=== PATIENT | female | born 1965 | race Caucasian/White ===

== ENCOUNTER 2016-08-12 12:34 | Emergency (ER) | payer MEDICAID ==
[2016-08-12] MEDS ORDERED: NS 1,000 ML IV ONE ×2 (12:43→14:25)
[2016-08-12] MEDS ORDERED: LORazepam 2 MG/ML INJ IVP ONE ×2 (12:43→14:25)
[2016-08-12] MEDS ORDERED: FOLIC ACID 1 MG TAB PO ONE (12:43)
[2016-08-12] MEDS ORDERED: THIAMINE HCL 100 MG TAB PO ONE (12:43)
[2016-08-12] MEDS ORDERED: MULTIVITAMINS 1 EACH TAB PO ONE (12:43)
[2016-08-12 12:46] VITALS: RESP 18; TEMP 97.5
--- NOTE | 2016-08-12 12:47 | EDPHY ---
H & P - Personal History Tetanus Vaccine Date: < 10 YEARS - Medical/Surgical History Hx Asthma: Yes Hx Chronic Respiratory Disease: No Hx Diabetes: No Hx Cardiac Disease: No Hx Renal Disease: No Hx Cirrhosis: No Hx Alcoholism: Yes Hx HIV/AIDS: No Hx Splenectomy or Spleen Trauma: No Other PMH: pancreatitis, PTSD, anemia, HTN, "LEG CRAMPS" ETOH, GERD - Social History Smoking Status: Current every day smoker Time Seen by Provider: 08/12/16 12:36 HPI/ROS: CHIEF COMPLAINT: "My belly hurts" HISTORY OF PRESENT ILLNESS: 50-year-old female history of homelessness, alcoholism, alcoholic pancreatitis, arrives from the [facility] complaining of 2 days of epigastric abdominal pain. She has been binge drinking because of recent of her mother. Denies radiation pain. No nausea or vomiting. No bowel movement abnormality. No melena or hematochezia. No pale or riri-colored stool. No headache. No seizure. No hallucination. PRIMARY CARE PROVIDER: none REVIEW OF SYSTEMS: A ten point review of systems was performed and is negative with the exception of the items mentioned in the HPI PAST MEDICAL & SURGICAL HISTORY: Alcoholic pancreatitis. Hepatitis C. SOCIAL HISTORY: Homeless. last drink alcohol 2 hours ago. Has been binge drinking for the past 2 days due to family PHYSICAL EXAM (Prior to examination, patient consented to physical exam, hands were washed and my usual and customary physical exam procedures followed) 1) GENERAL: Well-developed, well-nourished, alert and oriented. Answering questions appropriately . 2) HEAD: Normocephalic, atraumatic 3) HEENT: Pupils equal, round, reactive to light bilaterally. Sclera anicteric. 4) NECK: Full range of motion, no meningeal signs. 5) LUNGS: Clear auscultation bilaterally, no wheezes, no rhonchi, no retractions. 6) HEART: Regular rate and rhythm, no murmur, no heave, no gallop. 7) ABDOMEN: guarding epigastrium, tender to palpation epigastrium, negative McBurney's, negative Walker's, negative Rovsing's, negative peritoneal sign, 8) MUSCULOSKELETAL: Moving all extremities, no focal areas of tenderness, no obvious trauma. No peripheral edema or discoloration. 9) BACK: No CVA tenderness, no midline vertebral tenderness, no fluctuance, no step-off, no obvious trauma, no visual or palpable abnormality. 10) SKIN: No rash, no petechiae. 11) Psychiatric: Patient is oriented X 3, there is no agitation. DIFFERENTIAL DIAGNOSIS: In no particular order, including but not limited to biliary colic, cholecystitis, peptic ulcer disease, pancreatitis, and gastroenteritis. This is a partial list of diagnoses considered. These considerations are based on history, physical exam, past history and reassessment. (Sintia Swanson) Constitutional: Initial Vital Signs Temperature (C) 36.4 C 08/12/16 12:41 Heart Rate 116 H 08/12/16 12:41 Respiratory Rate 18 08/12/16 12:41 Blood Pressure 137/94 H 08/12/16 12:41 O2 Sat (%) 91 L 08/12/16 12:41 O2 Delivery Mode Room Air O2 (L/minute) 2 Allergies/Adverse Reactions: No Known Allergies Allergy (Verified 02/12/16 07:41) Home Medications: Medication Instructions Recorded NK [No Known Home Meds] 02/12/16 Medical Decision Making ED Course/Re-evaluation: 2:05 p.m.: Patient has removed her IV catheter. 2:18 p.m.: Patient awake, requesting food. Reviewed her laboratory studies including her lipase which is mildly elevated, but this is somewhat baseline for her. She was given IV fluids, oral thiamine, folate, multivitamin, GI cocktail. She is answering questions appropriately with no evidence of delirium tremens. She would [facility] to be [facility]. Doubt acute surgical abdominal pathology. Doubt acute cholecystitis. 3:20 p.m.: Re-evaluation. She is watching TV, eating a sandwich, answering questions appropriately. She is conversive, awake alert oriented person place time events, stable steady gait, clear speech pattern. She would like to return to the [facility]. She will be discharged with a Librium prepack. Doubt DTs. Discussed case Dr. Aidee Sanderson in the ER. (Sintia Swanson) Other Provider: The patient wasevaluatedand managed by themidlevel provider. Idiscussed the patient's presentation and course with thephysicianassistantor nurse practitionerand agree with theevaluation. My co-signature indicates that I have reviewed this chart and I agree with the findings and plan of care as documented. I am the secondary supervisingphysician. (Aidee Sanderson) - Data Points Laboratory Results: Laboratory Results 08/12/16 13:10 08/12/16 13:10 08/12/16 08/12/16 08/12/16 13:10 13:10 13:10 WBC 5.30 10^3/uL 10^3/uL (3.80-9.50) RBC 4.70 10^6/uL 10^6/uL (4.18-5.33) Hgb 12.5 g/dL L g/dL (12.6-16.3) Hct 39.3 % % (38.0-47.0) MCV 83.6 fL fL (81.5-99.8) MCH 26.6 pg L pg (27.9-34.1) MCHC 31.8 g/dL L g/dL (32.4-36.7) RDW 19.7 % H % (11.5-15.2) Plt Count 187 10^3/uL 10^3/uL (150-400) MPV 9.7 fL fL (8.7-11.7) Neut % (Auto) 42.0 % % (39.3-74.2) Lymph % (Auto) 50.2 % H % (15.0-45.0) [place] % (Auto) 6.2 % % (4.5-13.0) Eos % (Auto) 0.8 % % (0.6-7.6) Baso % (Auto) 0.4 % % (0.3-1.7) Nucleat RBC Rel Count 0.0 % % (0.0-0.2) Absolute Neuts (auto) 2.23 10^3/uL 10^3/uL (1.70-6.50) Absolute Lymphs (auto) 2.66 10^3/uL 10^3/uL (1.00-3.00) Absolute Monos (auto) 0.33 10^3/uL 10^3/uL (0.30-0.80) Absolute Eos (auto) 0.04 10^3/uL 10^3/uL (0.03-0.40) Absolute Basos (auto) 0.02 10^3/uL 10^3/uL (0.02-0.10) Absolute Nucleated RBC 0.00 10^3/uL 10^3/uL (0-0.01) Immature Gran % 0.4 % % (0.0-1.1) Immature Gran # 0.02 10^3/uL 10^3/uL (0.00-0.10) Sodium 155 mEq/L H mEq/L (134-144) Potassium 4.5 mEq/L mEq/L (3.5-5.2) Chloride 114 mEq/L H mEq/L (97-110) Carbon Dioxide 22 mEq/l mEq/l (22-31) Anion Gap 19 mEq/L H mEq/L (8-16) BUN 13 mg/dL mg/dL (7-23) Creatinine 0.7 mg/dL mg/dL (0.6-1.0) Estimated GFR > 60 Glucose 99 mg/dL mg/dL (70-100) Calcium 8.8 mg/dL mg/dL (8.5-10.4) Total Bilirubin 0.5 mg/dL mg/dL (0.1-1.4) Conjugated Bilirubin 0.4 mg/dL mg/dL (0.0-0.5) Unconjugated Bilirubin 0.1 mg/dL mg/dL (0.0-1.1) AST 120 IU/L H IU/L (14-46) ALT 99 IU/L H IU/L (9-52) Alkaline Phosphatase 166 IU/L H IU/L (38-126) Total Protein 8.4 g/dL H g/dL (6.3-8.2) Albumin 4.2 g/dL g/dL (3.5-5.0) Lipase 465.0 IU/L H IU/L (23-300) Beta HCG, Qual NEGATIVE Medications Given: Discontinued Medications Chlordiazepoxide (Librium 25 Mg Prepack#6) 1 btl TAKEHOME EDNOW ONE Stop: 08/12/16 14:24 Last Admin: 08/12/16 15:38 Dose: 1 btl Famotidine (Pepcid) 20 mg PO EDNOW ONE Stop: 08/12/16 14:21 Last Admin: 08/12/16 14:38 Dose: 20 mg Folic Acid (Folic Acid) 1 mg PO EDNOW ONE Stop: 08/12/16 12:44 Last Admin: 08/12/16 13:39 Dose: 1 mg Sodium Chloride (Ns) 1,000 mls @ 0 mls/hr IV ONCE ONE PRN Reason: Wide Open Stop: 08/12/16 12:44 Last Admin: 08/12/16 13:39 Dose: 1,000 mls Sodium Chloride (Ns) 1,000 mls @ 0 mls/hr IV ONCE ONE PRN Reason: Wide Open Stop: 08/12/16 14:26 Last Admin: 08/12/16 15:37 Dose: Not Given Lorazepam (Ativan Injection) 2 mg IVP EDNOW ONE Stop: 08/12/16 12:44 Last Admin: 08/12/16 13:39 Dose: 2 mg Lorazepam (Ativan Injection) 1 mg IVP EDNOW ONE Stop: 08/12/16 14:26 Last Admin: 08/12/16 15:37 Dose: Not Given Lorazepam (Ativan) 1 mg PO EDNOW ONE Stop: 08/12/16 14:50 Last Admin: 08/12/16 14:52 Dose: 1 mg Miscellaneous Medication (Gi Cocktail) 45 ml PO EDNOW ONE Stop: 08/12/16 14:08 Last Admin: 08/12/16 14:16 Dose: 45 ml Multivitamins (Tab-A-Bernard) 1 each PO EDNOW ONE Stop: 08/12/16 12:44 Last Admin: 08/12/16 13:39 Dose: 1 each Thiamine HCl (Vitamin B-1) 100 mg PO EDNOW ONE Stop: 08/12/16 12:44 Last Admin: 08/12/16 13:40 Dose: 100 mg Departure - Departure Disposition: Home, Routine, Self-Care Clinical Impression: Alcohol abuse Abdominal pain Qualifiers: Abdominal location: epigastric Qualified Code(s): R10.13 - Epigastric pain Condition: Good Instructions: Alcohol Withdrawal (ED) Additional Instructions: Please consider long-term sobriety. Referrals: [facility] [Outside] - As per Instructions
[2016-08-12 13:25] LABS: % IMMATURE GRANULYOCYTES 0.4 % (0.0-1.1); ABSOLUTE IMMATURE GRANULOCYTES 0.02 10^3/uL (0.00-0.10); ADD DIFF? NO; ADD MORPH? NO; ADD SCAN? NO; ATYPICAL LYMPHOCYTE FLAG 20 (0-99); FRAGMENT RBC FLAG 20 (0-99); HEMATOCRIT 39.3 % (38.0-47.0); HEMOGLOBIN 12.5 g/dL (12.6-16.3); LEFT SHIFT FLG 0 (0-99); LIPEMIA HEMOLYSIS FLAG 80 (0-99); MEAN CELL HEMOGLOBIN 26.6 pg (27.9-34.1); MEAN CELL HEMOGLOBIN CONCENTR. 31.8 g/dL (32.4-36.7); MEAN CELL VOLUME 83.6 fL (81.5-99.8); MEAN PLATELET VOLUME 9.7 fL (8.7-11.7); PLATELET CLUMPS FLAG 0 (0-99); PLATELET COUNT 187 10^3/uL (150-400); RED CELL DISTRIBUTION WIDTH 19.7 % (11.5-15.2)
[2016-08-12 13:44] LABS: ALANINE AMINOTRANSFERASE 99 IU/L (9-52); ALBUMIN 4.2 g/dL (3.5-5.0); ALKALINE PHOSPHATASE 166 IU/L (38-126); ANION GAP 19 mEq/L (8-16); ASPARTATE AMINOTRANSFERASE 120 IU/L (14-46); BILIRUBIN,TOTAL 0.5 mg/dL (0.1-1.4); BILIRUBIN-CONJUGATED 0.4 mg/dL (0.0-0.5); BILIRUBIN-UNCONJUGATED 0.1 mg/dL (0.0-1.1); CALCIUM 8.8 mg/dL (8.5-10.4); CARBON DIOXIDE 22 mEq/l (22-31); CHLORIDE 114 mEq/L (97-110); CREATININE 0.7 mg/dL (0.6-1.0); GLOMERULAR FILTRATION RATE > 60; GLUCOSE 99 mg/dL (70-100); POTASSIUM 4.5 mEq/L (3.5-5.2); SODIUM 155 mEq/L (134-144); TOTAL PROTEIN 8.4 g/dL (6.3-8.2)
[2016-08-12] MEDS ORDERED: MAALOX/LIDO/HYOSC GI COCKTAIL 55 ML BOTTLE PO ONE (14:07)
[2016-08-12] MEDS ORDERED: FAMOTIDINE 20 MG TAB PO ONE (14:20)
[2016-08-12] MEDS ORDERED: CHLORDIAZEPOXIDE 25MG PREPK#6 BTL TAKEHOME ONE (14:23)
[2016-08-12] MEDS ORDERED: LORazepam 1 MG TAB PO ONE (14:49)
[2016-08-12 15:36] VITALS: BP 111/85; PULSE 110; O2SAT 95
== END 2016-08-12 15:59 | disposition home or self-care (01) ==
LOC: EDUNIT#
DX: R10.13 Epigastric pain (principal); F10.10 Alcohol abuse, uncomplicated; J45.909 Unspecified asthma, uncomplicated; I10 Essential (primary) hypertension; F17.200 Nicotine dependence, unspecified, uncomplicated
CPT/HCPCS: 96374

== ENCOUNTER 2016-08-14 14:20 | Emergency (ER) | payer MEDICAID ==
--- NOTE | 2016-08-14 14:25 | EDPHY ---
H & P Time Seen by Provider: 08/14/16 14:25 HPI/ROS: CHIEF COMPLAINT: Abdominal pain after drinking a 5th of whiskey. HISTORY OF PRESENT ILLNESS: Patient presents with epigastric abdominal pain today by ambulance after drinking a lot of hard alcohol. She says is just like previous episodes. Not associated with vomiting or diarrhea no recent trauma or fall. She says symptoms are severe and is crying. REVIEW OF SYSTEMS: Eye: no change in vision ENT: No sore throat but says she has chronic dental pain after having work on her teeth and in June. No gum swelling and no difficulty opening her mouth and no ear symptoms. Cardiac: no chest pain or syncope Pulmonary: no cough or SOB Abdomen: HPI, no diarrhea Musculoskeletal: no back pain Skin: no rash Neuro: no headache Constitutional: no fever : no urinary symptoms A comprehensive 10 point review of systems is otherwise negative aside from elements mentioned in the history of present illness. PAST MEDICAL HISTORY: History and physical dated 11/27/2015 personally reviewed by myself includes alcoholism, pancreatitis, PTSD, anemia, hypertension and reflux disease. Social history: Recent and frequent alcohol General Appearance: Alert and conversant, cooperative. Eyes: No scleral icterus. ENT, Mouth: Normal mucous membranes. No gum swelling and no trismus. No stridor. Respiratory: Normal respiratory effort, breath sounds equal, lungs are clear to auscultation. Cardiovascular: Regular rate and rhythm. Gastrointestinal: Abdomen is soft and non tender. Neurological: Alert and oriented x3. Slightly slurred speech. Ambulatory. Not ataxic. Face symmetric, normal movement and sensation in all extremities. Skin: Warm and dry, no rashes. Musculoskeletal: No peripheral edema and no joint swelling. Psychiatric: Not agitated. Tearful. Emergency Department course/MDM: Plan for IV fluids and GI cocktail, check lipase level. She does not appear to have acute dental infection and can be safely referred back to her dentist for evaluation of her tooth complaints. test was-2 days ago here in our emergency department, not repeated. Patient had arterial blood drawn the left arm by myself because IV access was unable to be obtained. She felt better without treatment and wanted to leave. I think that is reasonable as her labs do not show acute metabolic abnormality or pancreatitis, new anemia, or severely elevated white blood cell count. She also has a physical examination that is not suggestive of acute surgical process. Smoking Status: Current every day smoker Constitutional: Initial Vital Signs Temperature (C) 36.7 C 08/14/16 14:38 Heart Rate 129 H 08/14/16 14:38 Respiratory Rate 22 H 08/14/16 14:38 Blood Pressure 158/136 H 08/14/16 14:38 O2 Sat (%) 95 08/14/16 14:38 O2 Delivery Mode Room Air Allergies/Adverse Reactions: No Known Allergies Allergy (Verified 08/14/16 14:38) Home Medications: Medication Instructions Recorded NK [No Known Home Meds] 02/12/16 Medical Decision Making Differential Diagnosis: Differential diagnosis considered for abdominal pain including but not limited to appendicitis, cholecystitis, pancreatitis, gastritis and urinary tract infection. - Data Points Laboratory Results: Laboratory Results 08/14/16 15:20 08/14/16 15:20 08/14/16 08/14/16 15:20 15:20 WBC 8.09 10^3/uL 10^3/uL (3.80-9.50) RBC 4.33 10^6/uL 10^6/uL (4.18-5.33) Hgb 11.7 g/dL L g/dL (12.6-16.3) Hct 36.0 % L % (38.0-47.0) MCV 83.1 fL fL (81.5-99.8) MCH 27.0 pg L pg (27.9-34.1) MCHC 32.5 g/dL g/dL (32.4-36.7) RDW 18.3 % H % (11.5-15.2) Plt Count 174 10^3/uL 10^3/uL (150-400) MPV 9.7 fL fL (8.7-11.7) Neut % (Auto) 70.8 % % (39.3-74.2) Lymph % (Auto) 22.6 % % (15.0-45.0) [place] % (Auto) 5.7 % % (4.5-13.0) Eos % (Auto) 0.1 % L % (0.6-7.6) Baso % (Auto) 0.4 % % (0.3-1.7) Nucleat RBC Rel Count 0.0 % % (0.0-0.2) Absolute Neuts (auto) 5.73 10^3/uL 10^3/uL (1.70-6.50) Absolute Lymphs (auto) 1.83 10^3/uL 10^3/uL (1.00-3.00) Absolute Monos (auto) 0.46 10^3/uL 10^3/uL (0.30-0.80) Absolute Eos (auto) 0.01 10^3/uL L 10^3/uL (0.03-0.40) Absolute Basos (auto) 0.03 10^3/uL 10^3/uL (0.02-0.10) Absolute Nucleated RBC 0.00 10^3/uL 10^3/uL (0-0.01) Immature Gran % 0.4 % % (0.0-1.1) Immature Gran # 0.03 10^3/uL 10^3/uL (0.00-0.10) Sodium 145 mEq/L H mEq/L (134-144) Potassium 4.0 mEq/L mEq/L (3.5-5.2) Chloride 110 mEq/L mEq/L (97-110) Carbon Dioxide 20 mEq/l L mEq/l (22-31) Anion Gap 15 mEq/L mEq/L (8-16) BUN 10 mg/dL mg/dL (7-23) Creatinine 0.5 mg/dL L mg/dL (0.6-1.0) Estimated GFR > 60 Glucose 103 mg/dL H mg/dL (70-100) Calcium 9.5 mg/dL mg/dL (8.5-10.4) Total Bilirubin 0.6 mg/dL mg/dL (0.1-1.4) Conjugated Bilirubin 0.4 mg/dL mg/dL (0.0-0.5) Unconjugated Bilirubin 0.2 mg/dL mg/dL (0.0-1.1) AST 95 IU/L H IU/L (14-46) ALT 96 IU/L H IU/L (9-52) Alkaline Phosphatase 156 IU/L H IU/L (38-126) Total Protein 8.5 g/dL H g/dL (6.3-8.2) Albumin 4.2 g/dL g/dL (3.5-5.0) Lipase 270.0 IU/L IU/L (23-300) Medications Given: Discontinued Medications Sodium Chloride (Ns) 1,000 mls @ 0 mls/hr IV ONCE ONE PRN Reason: Wide Open Stop: 08/14/16 14:36 Last Admin: 08/14/16 15:21 Dose: Not Given Miscellaneous Medication (Gi Cocktail) 55 ml PO EDNOW ONE Stop: 08/14/16 15:22 Last Admin: 08/14/16 15:26 Dose: Not Given Ondansetron HCl (Zofran Odt) 4 mg PO EDNOW ONE Stop: 08/14/16 15:22 Last Admin: 08/14/16 15:26 Dose: Not Given Departure - Departure Disposition: Home, Routine, Self-Care Clinical Impression: Abdominal pain Qualifiers: Abdominal location: epigastric Qualified Code(s): R10.13 - Epigastric pain Instructions: Acute Abdominal Pain (ED) Referrals: [facility] [Outside] - As per Instructions
[2016-08-14] MEDS ORDERED: NS 1,000 ML IV ONE (14:35)
[2016-08-14 14:40] VITALS: O2SAT 95
[2016-08-14] MEDS ORDERED: ONDANSETRON DISINTEGRATING 4 MG TAB PO ONE (15:21)
[2016-08-14] MEDS ORDERED: MAALOX/LIDO/HYOSC GI COCKTAIL 55 ML BOTTLE PO ONE (15:21)
[2016-08-14 15:30] LABS: % IMMATURE GRANULYOCYTES 0.4 % (0.0-1.1); ABSOLUTE IMMATURE GRANULOCYTES 0.03 10^3/uL (0.00-0.10); ADD DIFF? NO; ADD MORPH? NO; ADD SCAN? NO; ATYPICAL LYMPHOCYTE FLAG 10 (0-99); FRAGMENT RBC FLAG 0 (0-99); HEMOGLOBIN 11.7 g/dL (12.6-16.3); LEFT SHIFT FLG 0 (0-99); LIPEMIA HEMOLYSIS FLAG 80 (0-99); MEAN CELL HEMOGLOBIN CONCENTR. 32.5 g/dL (32.4-36.7); MEAN CELL VOLUME 83.1 fL (81.5-99.8); MEAN PLATELET VOLUME 9.7 fL (8.7-11.7); PLATELET CLUMPS FLAG 0 (0-99); PLATELET COUNT 174 10^3/uL (150-400); RED BLOOD CELL COUNT 4.33 10^6/uL (4.18-5.33); RED CELL DISTRIBUTION WIDTH 18.3 % (11.5-15.2)
[2016-08-14 15:52] LABS: ALANINE AMINOTRANSFERASE 96 IU/L (9-52); ALBUMIN 4.2 g/dL (3.5-5.0); ALKALINE PHOSPHATASE 156 IU/L (38-126); ANION GAP 15 mEq/L (8-16); ASPARTATE AMINOTRANSFERASE 95 IU/L (14-46); BILIRUBIN,TOTAL 0.6 mg/dL (0.1-1.4); BILIRUBIN-CONJUGATED 0.4 mg/dL (0.0-0.5); BILIRUBIN-UNCONJUGATED 0.2 mg/dL (0.0-1.1); CALCIUM 9.5 mg/dL (8.5-10.4); CARBON DIOXIDE 20 mEq/l (22-31); CHLORIDE 110 mEq/L (97-110); CREATININE 0.5 mg/dL (0.6-1.0); GLOMERULAR FILTRATION RATE > 60; GLUCOSE 103 mg/dL (70-100); SODIUM 145 mEq/L (134-144); TOTAL PROTEIN 8.5 g/dL (6.3-8.2)
[2016-08-14 16:16] VITALS: BP 148/89; PULSE 111; RESP 20; TEMP 98.6
== END 2016-08-14 16:18 | disposition home or self-care (01) ==
LOC: EDUNIT#
DX: R10.13 Epigastric pain (principal); I10 Essential (primary) hypertension; F17.200 Nicotine dependence, unspecified, uncomplicated

== ENCOUNTER 2016-10-13 12:50 | Inpatient (IN) | payer MEDICAID ==
[2016-10-13] MEDS ORDERED: MAG HYDROX/AL HYDROX/SIMETH 30 ML UDCUP PO ONE (14:37)
[2016-10-13] MEDS ORDERED: LIDOCAINE 2% VISCOUS 15 ML UDCUP PO ONE (14:37)
[2016-10-13] MEDS ORDERED: HYOSCYAMINE SULFATE 0.125 MG TAB PO ONE (14:37)
[2016-10-13] MEDS ORDERED: NS 1,000 ML IV ONE ×2 (14:40→16:32)
[2016-10-13] MEDS ORDERED: ONDANSETRON 4 MG/2 ML VIAL IVP ONE (14:40)
--- NOTE | 2016-10-13 14:43 | EDPHY ---
H & P Stated Complaint: generalized abdominal pain, eoth Source: Patient, Family Exam Limitations: No limitations - Personal History LMP (Females 10-55): Unknown Current Tetanus Diphtheria and Acellular Pertussis (TDAP): Yes Tetanus Vaccine Date: < 10 YEARS - Medical/Surgical History Hx Asthma: Yes Hx Chronic Respiratory Disease: No Hx Diabetes: No Hx Cardiac Disease: No Hx Renal Disease: No Hx Cirrhosis: No Hx Alcoholism: Yes Hx HIV/AIDS: No Hx Splenectomy or Spleen Trauma: No Other PMH: pancreatitis, PTSD, anemia, HTN, "LEG CRAMPS" ETOH, GERD - Social History Smoking Status: Current every day smoker HPI/ROS: CHIEF COMPLAINT: Abdominal pain, heartburn HISTORY OF PRESENT ILLNESS: Patient complains of 2-3 days of severe epigastric abdominal pain or heartburn. She describes it as the worst heartburn ever had. No actual chest pain. Pain is primarily in the epigastrium. It is worse with any kind of palpation and movement. It is 10/10. Associated with nausea vomiting. No bloody stools or emesis. No constipation. No fever chills. No trauma or injury. No history of abdominal surgeries. She reports a history of acid reflux but no formal diagnosis by GI physician. Former alcoholic. She denies any current alcohol use or abuse. No other associated complaints or modifying factors. PREVIOUS ABDOMINAL SURGERIES/DIAGNOSES: Acid reflux. Denies surgical interventions REVIEW OF SYSTEMS: Ten systems reviewed and are negative unless otherwise noted in the HPI EXAMINATION: General Appearance: Alert, no distress, crying but consolable. Head: normocephalic, atraumatic Eyes: Pupils equal and round, no conjunctival pallor or injection ENT, Mouth: Mucous membranes moist. Uvula midline. No erythema or edema. Neck: Normal inspection, supple, non-tender Respiratory: Lungs are clear to auscultation. No wheezing, rhonchi or crackles. Cardiovascular: Regular rate and rhythm. No murmur. Pulses intact distally. Gastrointestinal: Abdomen is soft with moderate epigastric tenderness. There is guarding of the epigastrium. No rebound. No tympany. No rigidity. No CVA tenderness. Nonacute abdomen. Back: non-tender, no bony abnormalities Neurological: A&O, nonfocal, normal gait. Strength is 5/5 in all 4 limbs. Skin: Warm and dry, no rash Extremities: Nontender, no pedal edema Psychiatric: Mood and affect normal DIFFERENTIAL DIAGNOSES: Including but not limited to epigastric pain, gastritis, pancreatitis, perforated duodenal ulcer, enteritis, colitis MDM: 2:40 p.m. Abdominal pain with "the worst heartburn I've ever had." No chest pain. No shortness of breath. She is very tender on the abdomen. We have made 2 attempts at IV had been unsuccessful. We will continue to do so and administer a GI cocktail in the interim. She is in no acute distress. She is tachycardic but vital signs otherwise stable. No tachypnea. No fever. She does not meet SIRS criteria but I have ordered blood cultures and lactic acid. 4:00 p.m. Significant difficulty obtaining laboratory studies to due poor venous access. We finally have obtained laboratory studies. CBC is unremarkable. Chemistry is not yet fully return. She does have a lactic acid that is elevated. Commenced IV fluid resuscitation based on a 20 milligram/kilogram bolus. She remains hemodynamically stable but in moderate pain. She has received several rounds of IV pain medication with minimal improvement. CT scan is pending. 5:00 p.m. Notified by radiologist Dr. Castañeda. CT scan abdomen pelvis reveals no significant acute findings. Findings are noted in the report. I have re- evaluated the patient. She is feeling no better with the pain medication she has received. She has received but just over 1 L of IV fluid and her lactic acid has gone from 3.0 to 2.5. Will continue 20 milligram/kilogram bolus. I have will contact hospitalist for admission. 5:10 p.m. I discussed the case with Dr. Denney. She will admit the patient to inpatient status for her intractable abdominal pain with lactic acidosis. Patient was tachycardic. She did not meet any other SIRS criteria. She does not have any leukocytosis. She still is afebrile. Heart rate has come down with IV fluid. No antibiotics recommended at this time. She is admitted in stable condition ED Precautions: Worsening pain. Fever. Bloody stools. Bloody emesis. Constipation or diarrhea. SUPERVISION: This patient was independently evaluated without direct examination by the attending physician. Case was discussed with attending physician. (Ed Robison ) Constitutional: Initial Vital Signs Temperature (C) 98.1 F 10/13/16 13:21 Heart Rate 122 H 10/13/16 13:21 Respiratory Rate 16 10/13/16 13:21 Blood Pressure 114/82 H 10/13/16 13:21 O2 Sat (%) 93 10/13/16 13:21 O2 Delivery Mode Nasal Cannula O2 (L/minute) 2 Allergies/Adverse Reactions: No Known Allergies Allergy (Verified 08/14/16 14:38) Home Medications: Medication Instructions Recorded NK [No Known Home Meds] 02/12/16 Medical Decision Making - Diagnostics Imaging Results: Imaging Impressions Chest X-Ray 10/13/16 14:37 Impression: No acute findings in the chest. Abdomen CT 10/13/16 14:42 Impression: 1. Moderate stool in the colon with no acute findings. 2. Additional findings as above.. Findings discussed with Ed Robison PA-C, on October 13, 2016 at 1700 hours. ED Course/Re-evaluation: The patient was evaluated and managed by the physician's phlebotomist medical lab assistant. My cosignature indicates that I reviewed the chart and I agree with the findings and plan of care as documented. I am the secondary supervising physician. ( Huyen Jeong) - Data Points Laboratory Results: Laboratory Results 10/13/16 15:30 10/13/16 15:30 10/13/16 10/13/16 10/13/16 16:15 15:30 15:30 WBC RBC Hgb Hct MCV MCH MCHC RDW Plt Count MPV Neut % (Auto) Lymph % (Auto) [place] % (Auto) Eos % (Auto) Baso % (Auto) Nucleat RBC Rel Count Absolute Neuts (auto) Absolute Lymphs (auto) Absolute Monos (auto) Absolute Eos (auto) Absolute Basos (auto) Absolute Nucleated RBC Immature Gran % Immature Gran # PT INR APTT VBG Lactic Acid 2.5 mmol/L H mmol/L 3.0 mmol/L H mmol/L (0.7-2.1) (0.7-2.1) Sodium Potassium Chloride Carbon Dioxide Anion Gap BUN Creatinine Estimated GFR Glucose Calcium Total Bilirubin Conjugated Bilirubin Unconjugated Bilirubin AST ALT Alkaline Phosphatase Troponin I Total Protein Albumin Lipase Beta HCG, Qual NEGATIVE 10/13/16 10/13/16 10/13/16 15:30 15:30 15:30 WBC 5.95 10^3/uL 10^3/uL (3.80-9.50) RBC 4.65 10^6/uL 10^6/uL (4.18-5.33) Hgb 12.2 g/dL L g/dL (12.6-16.3) Hct 38.1 % % (38.0-47.0) MCV 81.9 fL fL (81.5-99.8) MCH 26.2 pg L pg (27.9-34.1) MCHC 32.0 g/dL L g/dL (32.4-36.7) RDW 18.7 % H % (11.5-15.2) Plt Count 183 10^3/uL 10^3/uL (150-400) MPV 10.2 fL fL (8.7-11.7) Neut % (Auto) 48.3 % % (39.3-74.2) Lymph % (Auto) 44.4 % % (15.0-45.0) [place] % (Auto) 5.7 % % (4.5-13.0) Eos % (Auto) 0.8 % % (0.6-7.6) Baso % (Auto) 0.5 % % (0.3-1.7) Nucleat RBC Rel Count 0.0 % % (0.0-0.2) Absolute Neuts (auto) 2.87 10^3/uL 10^3/uL (1.70-6.50) Absolute Lymphs (auto) 2.64 10^3/uL 10^3/uL (1.00-3.00) Absolute Monos (auto) 0.34 10^3/uL 10^3/uL (0.30-0.80) Absolute Eos (auto) 0.05 10^3/uL 10^3/uL (0.03-0.40) Absolute Basos (auto) 0.03 10^3/uL 10^3/uL (0.02-0.10) Absolute Nucleated RBC 0.00 10^3/uL 10^3/uL (0-0.01) Immature Gran % 0.3 % % (0.0-1.1) Immature Gran # 0.02 10^3/uL 10^3/uL (0.00-0.10) PT 13.8 SEC SEC (12.0-15.0) INR 1.07 (0.83-1.16) APTT 27.4 SEC SEC (23.0-38.0) VBG Lactic Acid Sodium 145 mEq/L H mEq/L (134-144) Potassium 4.3 mEq/L mEq/L (3.5-5.2) Chloride 110 mEq/L mEq/L (97-110) Carbon Dioxide 20 mEq/l L mEq/l (22-31) Anion Gap 15 mEq/L mEq/L (8-16) BUN 8 mg/dL mg/dL (7-23) Creatinine 0.7 mg/dL mg/dL (0.6-1.0) Estimated GFR > 60 Glucose 88 mg/dL mg/dL (70-100) Calcium 9.4 mg/dL mg/dL (8.5-10.4) Total Bilirubin 0.5 mg/dL mg/dL (0.1-1.4) Conjugated Bilirubin 0.4 mg/dL mg/dL (0.0-0.5) Unconjugated Bilirubin 0.1 mg/dL mg/dL (0.0-1.1) AST 106 IU/L H IU/L (14-46) ALT 109 IU/L H IU/L (9-52) Alkaline Phosphatase 137 IU/L H IU/L (38-126) Troponin I < 0.012 ng/mL ng/mL (0-0.034) Total Protein 8.6 g/dL H g/dL (6.3-8.2) Albumin 4.2 g/dL g/dL (3.5-5.0) Lipase 357.0 IU/L H IU/L (23-300) Beta HCG, Qual Medications Given: Discontinued Medications Al Hydroxide/Mg Hydroxide (Maalox Susp) 30 ml PO ONCE ONE Stop: 10/13/16 14:38 Last Admin: 10/13/16 14:37 Dose: 30 ml Hydromorphone HCl (Dilaudid) 0.5 mg IVP EDNOW ONE Stop: 10/13/16 16:50 Last Admin: 10/13/16 16:49 Dose: 0.5 mg Hyoscyamine Sulfate (Levsin, Hyomax-Sl) 0.25 mg PO ONCE ONE Stop: 10/13/16 14:38 Last Admin: 10/13/16 14:37 Dose: 0.25 mg Sodium Chloride (Ns) 1,000 mls @ 0 mls/hr IV ONCE ONE PRN Reason: Wide Open Stop: 10/13/16 14:41 Last Admin: 10/13/16 15:41 Dose: 1,000 mls Sodium Chloride (Ns) 1,000 mls @ 0 mls/hr IV ONCE ONE PRN Reason: Wide Open Stop: 10/13/16 16:33 Last Admin: 10/13/16 16:33 Dose: 1,000 mls Lidocaine (Lidocaine 2% Viscous) 15 ml PO ONCE ONE Stop: 10/13/16 14:38 Last Admin: 10/13/16 14:37 Dose: 15 ml Morphine Sulfate (Morphine) 4 mg IVP EDNOW ONE Stop: 10/13/16 14:41 Last Admin: 10/13/16 15:40 Dose: 4 mg Ondansetron HCl (Zofran) 4 mg IVP EDNOW ONE Stop: 10/13/16 14:41 Last Admin: 10/13/16 15:41 Dose: 4 mg Departure - Departure Disposition: [facility] Inpatient Acute Clinical Impression: Epigastric pain, Lactic acidosis, Transaminitis Condition: Good Referrals: [facility] [Other] - As per Instructions
[2016-10-13 15:47] LABS: % IMMATURE GRANULYOCYTES 0.3 % (0.0-1.1); ABSOLUTE IMMATURE GRANULOCYTES 0.02 10^3/uL (0.00-0.10); ADD DIFF? NO; ADD MORPH? NO; ADD SCAN? NO; ATYPICAL LYMPHOCYTE FLAG 10 (0-99); FRAGMENT RBC FLAG 20 (0-99); HEMATOCRIT 38.1 % (38.0-47.0); HEMOGLOBIN 12.2 g/dL (12.6-16.3); LEFT SHIFT FLG 0 (0-99); LIPEMIA HEMOLYSIS FLAG 80 (0-99); MEAN CELL HEMOGLOBIN 26.2 pg (27.9-34.1); MEAN CELL VOLUME 81.9 fL (81.5-99.8); MEAN PLATELET VOLUME 10.2 fL (8.7-11.7); PLATELET CLUMPS FLAG 10 (0-99); PLATELET COUNT 183 10^3/uL (150-400); RED BLOOD CELL COUNT 4.65 10^6/uL (4.18-5.33); RED CELL DISTRIBUTION WIDTH 18.7 % (11.5-15.2)
--- NOTE | 2016-10-13 15:58 | CPEKG ---
Heart Rate: 100 RR Interval: 600 P-R Interval: 152 QRSD Interval: 88 QT Interval: 360 QTC Interval: 465 P [place]: 57 QRS [place]: 91 T Wave [place]: 67 EKG Severity - BORDERLINE ECG - EKG Impression: SINUS TACHYCARDIA EKG Impression: BORDERLINE RIGHT AXIS DEVIATION EKG Impression: LOW VOLTAGE IN FRONTAL LEADS Electronically Signed By: Huyen Jeong 13-Oct-2016 22:04:02
[2016-10-13 15:59] LABS: INR 1.07 (0.83-1.16); PROTIME(PATIENT) 13.8 SEC (12.0-15.0)
[2016-10-13 16:00] LABS: APTT 27.4 SEC (23.0-38.0)
[2016-10-13 16:04] LABS: ALANINE AMINOTRANSFERASE 109 IU/L (9-52); ALBUMIN 4.2 g/dL (3.5-5.0); ALKALINE PHOSPHATASE 137 IU/L (38-126); ANION GAP 15 mEq/L (8-16); ASPARTATE AMINOTRANSFERASE 106 IU/L (14-46); BILIRUBIN,TOTAL 0.5 mg/dL (0.1-1.4); BILIRUBIN-CONJUGATED 0.4 mg/dL (0.0-0.5); BILIRUBIN-UNCONJUGATED 0.1 mg/dL (0.0-1.1); CALCIUM 9.4 mg/dL (8.5-10.4); CARBON DIOXIDE 20 mEq/l (22-31); CHLORIDE 110 mEq/L (97-110); CREATININE 0.7 mg/dL (0.6-1.0); GLOMERULAR FILTRATION RATE > 60; GLUCOSE 88 mg/dL (70-100); POTASSIUM 4.3 mEq/L (3.5-5.2); SODIUM 145 mEq/L (134-144); TOTAL PROTEIN 8.6 g/dL (6.3-8.2)
[2016-10-13 16:16] LABS: TROPONIN I < 0.012 ng/mL (0-0.034)
[2016-10-13] MEDS ORDERED: IOPAMIDOL (ISOVUE-300) 100 ML BTL IV ONE (16:22)
[2016-10-13] MEDS ORDERED: HYDROmorphONE/DILAUDID 1 MG/ML SYR ONE (16:40)
[2016-10-13 16:41] LABS: LACGHOST ORDER
[2016-10-13] MEDS ORDERED: HYDROmorphONE/DILAUDID 1 MG/ML SYR IVP ONE ×2 (16:49→18:05)
[2016-10-13] MEDS ORDERED: ACETAMINOPHEN 325 MG TAB PO PRN (18:15)
[2016-10-13] MEDS ORDERED: ONDANSETRON 4 MG/2 ML VIAL IVP PRN (18:15)
[2016-10-13] MEDS ORDERED: HYDROmorphONE/DILAUDID 1 MG/ML SYR IVP PRN (18:15)
[2016-10-13] MEDS ORDERED: BISACODYL 10 MG SUPP PR PRN (18:16)
[2016-10-13] MEDS ORDERED: POLYETHYLENE GLYCOL 3350 17 GM PKT PO PRN (18:16)
[2016-10-13] MEDS ORDERED: LACTULOSE 20 GM/30 ML UDCUP PO PRN (18:16)
[2016-10-13] MEDS ORDERED: MAGNESIUM HYDROXIDE 30 ML UDCUP PO PRN (18:16)
--- NOTE | 2016-10-13 19:12 | GHP ---
[f rep st] HISTORY AND PHYSICAL DATE OF ADMISSION: 10/13/2016 CHIEF COMPLAINT: Epigastric and right upper quadrant pain. HISTORY: The patient is a 51-year-old female, who has multiple previous admissions for acute pancre atitis due to alcohol. She now re-presents with a pain similar to her previous episodes. She descr ibes 2 weeks of epigastric and right upper quadrant pain radiating to her back. She has had absolut jennifer no appetite and has not taken much p.o. She has had some nausea. She has been constipated. Colleen hall is a previous heavy drinker, but claims that she has now cut back, drinking a couple beers only ev raul 1-1/2 weeks. Her last alcoholic beverage was 2 drinks yesterday. PAST MEDICAL HISTORY: 1. Recurrent alcoholic pancreatitis. 2. Hepatitis C. 3. Posttraumatic stress disorder. 4. Asthma. MEDICATIONS: Please see computer record for full detailed list. ALLERGIES: No known drug allergies. SOCIAL HISTORY: She smokes 4 cigarettes per day. She has a long-standing history of alcoholism, cu rrently drinking once every week and a half. Lives with a boyfriend. REVIEW OF SYSTEMS: Complete Review of Systems obtained. Review of Systems negative regarding CONST ITUTIONAL, HEENT, GI, PULMONARY, VASCULAR, , HEMATOLOGY, MUSCULOSKELETAL, ENDOCRINE, PSYCH, except for positives as in HPI. FAMILY HISTORY: Reviewed and noncontributory to presenting complaint. PHYSICAL EXAMINATION: GENERAL: Well-developed, well-nourished female, in no acute distress. VITAL SIGNS: Temperature is 36.7, pulse 122, blood pressure 119/88, saturating 93% on room air. HEENT: Normal conjunctiva. Pupils react light. ENT: Normal ears, nose. Hearing intact. Normal lips and teeth. Oropharynx moist. NECK: Trachea midline. No thyromegaly. CHEST: Normal effort. LUNGS: Clear to auscultation bilaterally. CARDIOVASCULAR: Regular rate and rhythm. No murmur. No lowe r extremity edema. ABDOMEN: Soft. Positive epigastric tenderness to palpation without rebound or guarding. No hepatosplenomegaly. SKIN: Warm, dry, intact. No rash. MUSCULOSKELETAL: No cyanosi s or clubbing. Strength 5/5 upper and lower extremities. NEURO: Cranial nerves intact. Normal se nsation to light touch. PSYCH: Alert and oriented x3. Normal affect. Normal judgment. Normal me tierra. LABORATORY DATA: White count 5.95, hematocrit 38.1, platelets 183. Sodium 145, potassium 4.3, chlo ride 110, bicarb 20, BUN 8, creatinine 0.7, glucose 88. AST is 106, ALT is 104, alk phos 137. Trop onin is negative. Lipase is 357. test is negative. INR is 1.07. Lactate was initially 3; has come down slowly after aggressive IV fluid hydration in the emergency room. EKG viewed by me ; my personal interpretation is sinus tachycardia with low voltage. Chest x-ray is negative. CT sc an of the abdomen and pelvis only shows constipation. ASSESSMENT/PLAN: 1. Recurrent acute pancreatitis. I suspect she does not mount much of a lipase given her multiple previous pancreatitis episodes. She does not however have any calcifications in her pancreas on CAT scan. Her current presentation feels very much like her previous episodes of acute pancreatitis an d she will be treated supportively as such. We will make her n.p.o., give her IV fluid, pain contro l with IV Dilaudid. I recommended complete alcohol cessation. 2. Alcoholism. She has cut back dramatically but continues to drink some beers intermittently. If she is truthful regarding her current alcohol intake, she should not withdraw. 3. Lactic acid elevation. I think she is very dry due to decreased p.o. intake and I do not think she is septic. She also probably has poor lactate clearance due to liver disease. We will continue hydration and follow lactates. 4. Hepatitis C. She does have abnormal LFTs. She should follow up with Gastroenterology to disc s her options regarding Mary. 5. Tobacco dependence. Will place her on nicotine patch. ADMISSION STATUS: 1. Will admit to inpatient. Anticipate greater than 2 midnights will be required. 2. DVT prophylaxis. She is moderate risk, will place on subcu Lovenox. 3. Code status, full. /[id number]/MODL
[2016-10-13] MEDS: NS 1,000 ML IV SCH (20:37)
[2016-10-13] MEDS: SENNOSIDES/DOCUSATE SODIUM TAB PO SCH (20:48)
[2016-10-13] MEDS: THIAMINE HCL 100 MG TAB PO SCH (20:48)
[2016-10-14] MEDS: NS 1,000 ML IV SCH (05:33)
--- NOTE | 2016-10-14 08:29 | HOSPPROG ---
Hospitalist Progress Note Assessment/Plan: Patient is a 51-year-old female who presented to the emergency room with epigastric and right upper quadrant pain. She has had multiple admissions for acute pancreatitis due to alcohol. She also has complaints of being constipated. Today is my 1st encounter with the patient. Chart reviewed. * Acute pancreatitis/ this is recurrent CT scan of the abdomen and pelvis shows constipation will continue supportive treatment *abdominal pain due to the above has pain after eating reviewed her PMH and has biliary dyskinesia was to get evaluated by surgery for cholecystectomy but had left AMA at that time * alcoholism she knows this is a problems boyfriend drinks beers but not around her no s/sx of withdrawal this morning * elevated lactic acid level resolved with hydration * hepatitis-C has elevated LFTs should get follow-up with Gastroenterology will need treatment with jovi * nicotine dependence nicotine patch * DVT prophylaxis low molecular weight heparin *Plan: continue current treatment/ pain is ongoing/will do a trial of ice chips Subjective: September c/o epigastric and generalized abdominal pain. Objective: Vital Signs Temp Pulse Resp BP Pulse Ox 36.8 C 67 17 103/70 98 10/14/16 08:00 10/14/16 08:00 10/14/16 08:00 10/14/16 08:00 10/14/16 08:00 10/13/16 10/14/16 10/15/16 05:59 05:59 05:59 Intake Total 2950 Balance 2950 PT 13.8 SEC (12.0-15.0) 10/13/16 15:30 INR 1.07 (0.83-1.16) 10/13/16 15:30 - Physical Exam Constitutional: uncomfortable, unkempt, No not in pain Eyes: PERRL Ears, Nose, Mouth, Throat: hearing normal Cardiovascular: regular rate and rhythym Respiratory: no respiratory distress Gastrointestinal: normoactive bowel sounds, tenderness (epigatric and both upper quadrants) Skin: warm Musculoskeletal: no muscle tenderness Neurologic: AAOx3 Psychiatric: interacting appropriately, anxious ICD10 Worksheet Patient Problems: Problems Problem Status Onset Epigastric pain Acute Lactic acidosis Acute Transaminitis Acute Abdominal pain Acute Alcohol intoxication Acute Pancreatitis Acute Pancreatitis, alcoholic Acute
[2016-10-14] MEDS: THIAMINE HCL 100 MG TAB PO SCH (09:47)
[2016-10-14] MEDS: NICOTINE 14 MG/24 HR PATCH TD SCH (09:48)
[2016-10-14] MEDS: ENOXAPARIN 40 MG/0.4 ML SYR SC SCH (09:48)
[2016-10-14] MEDS: SENNOSIDES/DOCUSATE SODIUM TAB PO SCH ×2 (09:48→20:02)
[2016-10-14 13:07] LABS: % IMMATURE GRANULYOCYTES 0.2 % (0.0-1.1); ABSOLUTE IMMATURE GRANULOCYTES 0.01 10^3/uL (0.00-0.10); ADD DIFF? NO; ADD MORPH? NO; ADD SCAN? NO; ATYPICAL LYMPHOCYTE FLAG 30 (0-99); FRAGMENT RBC FLAG 0 (0-99); HEMATOCRIT 32.3 % (38.0-47.0); HEMOGLOBIN 10.2 g/dL (12.6-16.3); LEFT SHIFT FLG 0 (0-99); LIPEMIA HEMOLYSIS FLAG 80 (0-99); MEAN CELL HEMOGLOBIN 26.2 pg (27.9-34.1); MEAN CELL HEMOGLOBIN CONCENTR. 31.6 g/dL (32.4-36.7); MEAN PLATELET VOLUME 9.9 fL (8.7-11.7); PLATELET CLUMPS FLAG 0 (0-99); PLATELET COUNT 145 10^3/uL (150-400); RED BLOOD CELL COUNT 3.89 10^6/uL (4.18-5.33); RED CELL DISTRIBUTION WIDTH 18.6 % (11.5-15.2)
[2016-10-14 14:00] LABS: ALANINE AMINOTRANSFERASE 90 IU/L (9-52); ALBUMIN 3.4 g/dL (3.5-5.0); ALKALINE PHOSPHATASE 96 IU/L (38-126); ANION GAP 10 mEq/L (8-16); ASPARTATE AMINOTRANSFERASE 81 IU/L (14-46); BILIRUBIN,TOTAL 0.9 mg/dL (0.1-1.4); BILIRUBIN-CONJUGATED 0.5 mg/dL (0.0-0.5); BILIRUBIN-UNCONJUGATED 0.4 mg/dL (0.0-1.1); CARBON DIOXIDE 19 mEq/l (22-31); CHLORIDE 112 mEq/L (97-110); CREATININE 0.6 mg/dL (0.6-1.0); GLOMERULAR FILTRATION RATE > 60; GLUCOSE 64 mg/dL (70-100); MAGNESIUM 1.7 mg/dL (1.6-2.3); POTASSIUM 4.1 mEq/L (3.5-5.2); SODIUM 141 mEq/L (134-144); TOTAL PROTEIN 6.8 g/dL (6.3-8.2)
[2016-10-14] MEDS: oxyCODONE IR 5 MG TAB PO PRN (20:53)
[2016-10-15] MEDS: NS 1,000 ML IV SCH ×3 (00:50→23:30)
[2016-10-15] MEDS: NICOTINE 14 MG/24 HR PATCH TD SCH (08:58)
[2016-10-15] MEDS: SENNOSIDES/DOCUSATE SODIUM TAB PO SCH ×2 (08:58→20:19)
[2016-10-15] MEDS: THIAMINE HCL 100 MG TAB PO SCH (08:58)
[2016-10-15] MEDS: oxyCODONE IR 5 MG TAB PO PRN ×2 (09:01→20:18)
[2016-10-15] MEDS: ENOXAPARIN 40 MG/0.4 ML SYR SC SCH (09:02)
--- NOTE | 2016-10-15 09:38 | HOSPPROG ---
Hospitalist Progress Note Assessment/Plan: Patient is a 51-year-old female who presented to the emergency room with epigastric and right upper quadrant pain. She has had multiple admissions for acute pancreatitis due to alcohol. She also has complaints of being constipated. * Acute pancreatitis/ this is recurrent CT scan of the abdomen and pelvis shows constipation will continue supportive treatment *abdominal pain/ questioning if it r/t gallbladder will get HIDA scan today has pain after eating reviewed her PMH and has biliary dyskinesia was to get evaluated by surgery for cholecystectomy but had left AMA at that time * alcoholism she knows this is a problems boyfriend drinks beers but not around her no s/sx of withdrawal this morning * elevated lactic acid level resolved with hydration * hepatitis-C has elevated LFTs should get follow-up with Gastroenterology will need treatment with Mary * nicotine dependence nicotine patch * DVT prophylaxis low molecular weight heparin *Plan: continue current treatment/ get a hida scan Subjective: September c/o nausea, pain in ruq mainly. Objective: Vital Signs Temp Pulse Resp BP Pulse Ox 36.6 C 83 20 135/96 H 96 10/15/16 07:27 10/15/16 07:27 10/15/16 07:27 10/15/16 07:27 10/15/16 07:27 Laboratory Results 10/14/16 13:00 10/14/16 13:00 10/14/16 10/15/16 10/16/16 05:59 05:59 05:59 Intake Total 2950 1235 Balance 2950 1235 PT 13.8 SEC (12.0-15.0) 10/13/16 15:30 INR 1.07 (0.83-1.16) 10/13/16 15:30 - Physical Exam Constitutional: chronically ill appearing, uncomfortable, No not in pain Eyes: PERRL Ears, Nose, Mouth, Throat: hearing normal Cardiovascular: regular rate and rhythym Respiratory: no respiratory distress Gastrointestinal: normoactive bowel sounds, tenderness, benjamin's sign Skin: warm Musculoskeletal: no muscle tenderness Neurologic: AAOx3 Psychiatric: interacting appropriately, anxious ICD10 Worksheet Patient Problems: Problems Problem Status Onset Epigastric pain Acute Lactic acidosis Acute Transaminitis Acute Abdominal pain Acute Alcohol intoxication Acute Pancreatitis Acute Pancreatitis, alcoholic Acute
[2016-10-16] MEDS: NICOTINE 14 MG/24 HR PATCH TD SCH (08:55)
[2016-10-16] MEDS: SENNOSIDES/DOCUSATE SODIUM TAB PO SCH ×2 (08:56→20:08)
[2016-10-16] MEDS: THIAMINE HCL 100 MG TAB PO SCH (08:56)
[2016-10-16] MEDS: NS 1,000 ML IV SCH (08:57)
[2016-10-16] MEDS: ENOXAPARIN 40 MG/0.4 ML SYR SC SCH (10:44)
[2016-10-16] MEDS ORDERED: ALTEPLASE 2 MG VIAL IVP PRN (11:51)
--- NOTE | 2016-10-16 14:12 | GCON ---
[f rep st] CONSULTATION HISTORY OF PRESENT ILLNESS: Asked by medicine team to see this 51-year-old female, who is admitted with abdominal pain, presumed recurrent acute pancreatitis. The patient reports that she has had 2 weeks of intermittent epigastric and right mid abdomen pain, worse after fried foods. She has had some nausea, but no vomiting. She reports today her pain is getting a little bit better with the IV pain medication. She has a history of multiple admissions for acute pancreatitis. Her lipase upon admission is 357, on October 13, 2016. She had mildly elevated liver function tests, normal bilirubin. Upon admission, patient had an abdominal CT which was grossly negative. The patient had a HIDA scan which showed no filling defects, no significant gallbladder contraction. The patient's chart does indicate a history of biliary dyskinesia. The patient has never had any abdominal surgeries. PAST MEDICAL HISTORY: Multiple episodes of pancreatitis, alcohol abuse, possible biliary dyskinesia, hepatitis C. PAST SURGICAL HISTORY: None. SOCIAL HISTORY: Positive for smoking, alcoholism, lives with boyfriend. REVIEW OF SYSTEMS: She had a negative 10-point review of systems. PHYSICAL EXAMINATION: GENERAL: The patient is a non-jaundiced female, initially sleeping when we entered the room. CHEST: CTA bilaterally. HEART: Regular rhythm and rate. ABDOMEN: Nondistended, no scars. Negative rebound. Positive Walker sign, although the patient also has pain in the left upper quadrant upon palpation of this area and deep inspiration. EXTREMITIES: No lower extremity edema. LABORATORY STUDIES: On 10/13/2016, normal bilirubin, mildly elevated AST, ALT, alkaline phosphatase. Lipase 357. RADIOLOGY: Please see HPI. IMPRESSION: 51-year-old female with abdominal pain, likely secondary to acute pancreatitis, much less likely gallbladder etiology. RECOMMENDATION: Updated laboratory studies will be ordered, I will discuss the case shortly with Dr. Daly. Addendum: Patient seen and examined. 51-year-old female, longstanding history of alcohol abuse. Has intermittent right upper quadrant and epigastric pain. In the past, has been attributed to pancreatitis which she does have this admission. As her pancreatitis has resolved she continues to have right upper quadrant pain which appears to be worse with p. o. intake, worse with fatty foods. I did review her previous imaging from previous hospital stays including multiple abdominal ultrasounds, CT scans, abdominal MRI scans and HIDA scan performed. I do not feel that she has cholecystitis but given the fact that she does have documented stones and poorly functioning gallbladder this could explain why she continues to have pain worse with p. o. intake. I did discuss with her the risks and benefits to surgery I told her that she is not unreasonable surgical candidate however she does not have a classic gallbladder type pathology on exam. Did tell her that my recommendation would be to proceed with cholecystectomy with the understanding that it may not resolve her pain especially in light of her heavy drinking and multiple admissions in the past for pancreatitis. I did tell her that if she continues to drain she will likely continue to have epigastric pain secondary to her pancreatitis but that she may in fact have some underlying gallbladder pathology as well. After discussing the risks benefits and alternatives she agrees with surgery, will plan to proceed with laparoscopic cholecystectomy with intraoperative cholangiogram. /[id number]/MODL MTDD
[2016-10-16 15:42] LABS: BILIRUBIN-CONJUGATED 0.6 mg/dL (0.0-0.5); BILIRUBIN-UNCONJUGATED 0.4 mg/dL (0.0-1.1)
[2016-10-17] MEDS ORDERED: BUPIVACAINE/EPI 0.25% 30 ML SDV ONE (07:41)
[2016-10-17] MEDS ORDERED: IOPAMIDOL (ISOVUE-300) 150 ML BTL IV ONE (07:42)
[2016-10-17] MEDS: ENOXAPARIN 40 MG/0.4 ML SYR SC SCH (07:46)
[2016-10-17] MEDS ORDERED: fentaNYL 100 MCG/2 ML INJ ONE ×3 (08:37→11:15)
[2016-10-17] MEDS ORDERED: PROPOFOL 200 MG/20 ML VIAL ONE (08:38)
[2016-10-17] MEDS ORDERED: ceFAZolin 2 GM/DEXTROSE 100 ML IV ONE (09:00)
[2016-10-17] MEDS ORDERED: MIDAZOLAM 2 MG/2 ML VIAL ONE (09:32)
--- NOTE | 2016-10-17 10:56 | POSTOPPROG ---
Post Op Note Date of Operation: 10/17/16 Surgeon: Boston Daly Domestic Laundry Worker: Diamond Ramos Anesthesiologist: Senthil Anesthesia: GET(General Endotracheal) Pre-op Diagnosis: biliary colic, recurrent pancreatitis Post-op Diagnosis: same Procedure: lap estephania c IOC Findings: no filling defect, thin gallbladder wall, no definite stones, min adhesions Inf/Abcess present in the surg proc area at time of surgery?: No EBL: Minimal Complications: none Specimen(s): gallbladder to pathology
--- NOTE | 2016-10-17 12:59 | GOP ---
[f rep st] OPERATIVE REPORT DATE OF OPERATION: 10/17/2016 SURGEON: Boston Daly MD ALUMINUM POLISHER: Diamond Ramos PA-C. ANESTHESIA: General endotracheal. ANESTHESIOLOGIST: Dr. Ndiaye. PREOPERATIVE DIAGNOSIS: Biliary colic. POSTOPERATIVE DIAGNOSIS: Biliary colic. PROCEDURE PERFORMED: Laparoscopic cholecystectomy with intraoperative cholangiogram. FINDINGS: Very minimal adhesions to the gallbladder proper. An intraoperative cholangiogram was performed which showed brisk filling of the biliary tree with good spillage into the duodenum without xiang delay filling defect. SPECIMENS: Gallbladder. ESTIMATED BLOOD LOSS: 5 cc. DESCRIPTION OF PROCEDURE: The patient was greeted in the preoperative suite. Once again, risks, benefits, and alternatives were discussed. Consent was signed. She was then brought back to the operative suite, placed on the OR table in supine position. After all anesthesia machines, including SCDs, were on and functioning, a [employer] time-out was performed. General endotracheal anesthesia was then induced without incident. The patient' s abdomen was then widely prepped and draped in typical sterile fashion. I established pneumoperitoneum via a stab incision in the left upper quadrant using the Veress needle insufflated with CO2 to 15 mmHg which was well tolerated by the patient. After this was done, I entered the abdomen using the Visiport technique in an infraumbilical fashion. Once successfully in, I placed 3 additional ports, 1 in the subxiphoid, 2 in the right upper quadrant, all under direct visualization. The patient had a very enlarged left lateral lobe of the liver blocking it, and I had to put an additional port in the left upper quadrant to help retraction. The dome of the gallbladder was then grasped and elevated over the liver. I grasped the infundibulum, and using a combination of electrocautery and blunt dissection, identified 2 and only 2 structures leading toward the gallbladder proper. Once this was done, I ligated the cystic artery. Using the Solorio clamp, I successfully completed a cholangiogram which showed brisk spillage of contrast into the duodenum and good opacification of the biliary tree without any filling defects. Once this was done, I then clipped the cystic duct and amputated it. The gallbladder was then taken off the bed of the liver with electrocautery. It was placed in an EndoCatch bag and removed. Hemostasis was achieved in the bed of the liver. The right upper quadrant was irrigated and suctioned. Local anesthesia was then infiltrated until all port sites which were removed under direct visualization. My umbilical port site was closed with an 0 Vicryl stitch in a [id number] fashion. The skin was closed with running 4-0 Monocryl over which Dermabond was placed. The patient was then extubated in the operative suite and taken to the PACU in satisfactory condition. DRAINS: None. COUNTS: All counts were reported as correct x2. /[id number]/MODL MTDD
[2016-10-17] MEDS: SENNOSIDES/DOCUSATE SODIUM TAB PO SCH ×2 (13:14→20:16)
--- NOTE | 2016-10-17 13:36 | HOSPPROG ---
Hospitalist Progress Note Assessment/Plan: Patient is a 51-year-old female who presented to the emergency room with epigastric and right upper quadrant pain. She has had multiple admissions for acute pancreatitis due to alcohol. She also has complaints of being constipated. *abdominal pain/ chronic bouts of biliary colic hx of biliary dyskinesia s/p cholecystectomy/POD #0 patient has been c/o issues with eating and feeling bloated and poorly after meals * Acute pancreatitis/ this is recurrent CT scan of the abdomen and pelvis shows constipation will continue supportive treatment l ipase stable * alcoholism she knows this is a problems boyfriend drinks beers but not around her no s/sx of withdrawal throughout her stay * elevated lactic acid level resolved with hydration * hepatitis-C has elevated LFTs should get follow-up with Gastroenterology will need treatment with Mary * nicotine dependence nicotine patch * DVT prophylaxis low molecular weight heparin *Plan: hopefully, can dc home this weekend Subjective: Zoila is having some surgical pain in her abdomen. Objective: Vital Signs Temp Pulse Resp BP Pulse Ox 36.8 C 83 16 116/85 H 97 10/17/16 13:07 10/17/16 13:07 10/17/16 13:07 10/17/16 13:07 10/17/16 13:07 Laboratory Results 10/14/16 13:00 10/14/16 13:00 10/16/16 10/17/16 10/18/16 05:59 05:59 05:59 Intake Total 8844 228 5297 Output Total 225 Balance 1047 800 875 PT 13.8 SEC (12.0-15.0) 10/13/16 15:30 INR 1.07 (0.83-1.16) 10/13/16 15:30 - Physical Exam Constitutional: uncomfortable, No not in pain Eyes: PERRL Ears, Nose, Mouth, Throat: hearing normal Cardiovascular: regular rate and rhythym Respiratory: no respiratory distress Gastrointestinal: normoactive bowel sounds, tenderness Skin: warm Musculoskeletal: no muscle tenderness Neurologic: AAOx3 Psychiatric: interacting appropriately ICD10 Worksheet Patient Problems: Problems Problem Status Onset Epigastric pain Acute Lactic acidosis Acute Transaminitis Acute Abdominal pain Acute Alcohol intoxication Acute Pancreatitis Acute Pancreatitis, alcoholic Acute
[2016-10-17] MEDS: NICOTINE 14 MG/24 HR PATCH TD SCH (15:11)
[2016-10-17] MEDS: oxyCODONE IR 5 MG TAB PO PRN (15:12)
[2016-10-17] MEDS: THIAMINE HCL 100 MG TAB PO SCH (15:14)
[2016-10-17] MEDS: NS 1,000 ML IV SCH (15:18)
[2016-10-18] MEDS: oxyCODONE IR 5 MG TAB PO PRN ×4 (04:36→20:27)
[2016-10-18 05:02] LABS: % IMMATURE GRANULYOCYTES 0.2 % (0.0-1.1); ABSOLUTE IMMATURE GRANULOCYTES 0.01 10^3/uL (0.00-0.10); ADD DIFF? NO; ADD MORPH? NO; ADD SCAN? NO; ATYPICAL LYMPHOCYTE FLAG 10 (0-99); FRAGMENT RBC FLAG 0 (0-99); HEMATOCRIT 28.4 % (38.0-47.0); HEMOGLOBIN 8.6 g/dL (12.6-16.3); LEFT SHIFT FLG 10 (0-99); LIPEMIA HEMOLYSIS FLAG 80 (0-99); MEAN CELL HEMOGLOBIN 27.2 pg (27.9-34.1); MEAN CELL HEMOGLOBIN CONCENTR. 30.3 g/dL (32.4-36.7); MEAN CELL VOLUME 89.9 fL (81.5-99.8); MEAN PLATELET VOLUME 10.1 fL (8.7-11.7); PLATELET CLUMPS FLAG 10 (0-99); PLATELET COUNT 110 10^3/uL (150-400); RED BLOOD CELL COUNT 3.16 10^6/uL (4.18-5.33); RED CELL DISTRIBUTION WIDTH 18.1 % (11.5-15.2)
[2016-10-18 05:08] LABS: ANION GAP 6 mEq/L (8-16); CALCIUM 8.8 mg/dL (8.5-10.4); CARBON DIOXIDE 19 mEq/l (22-31); CHLORIDE 114 mEq/L (97-110); CREATININE 0.5 mg/dL (0.6-1.0); GLOMERULAR FILTRATION RATE > 60; GLUCOSE 96 mg/dL (70-100); POTASSIUM 4.1 mEq/L (3.5-5.2); SODIUM 139 mEq/L (134-144)
[2016-10-18] MEDS: NICOTINE 14 MG/24 HR PATCH TD SCH (10:33)
[2016-10-18] MEDS: ENOXAPARIN 40 MG/0.4 ML SYR SC SCH (10:34)
[2016-10-18] MEDS: THIAMINE HCL 100 MG TAB PO SCH (10:34)
[2016-10-18] MEDS: SENNOSIDES/DOCUSATE SODIUM TAB PO SCH ×2 (10:34→19:36)
--- NOTE | 2016-10-18 12:13 | HOSPPROG ---
Hospitalist Progress Note Assessment/Plan: Patient is a 51-year-old female who presented to the emergency room with epigastric and right upper quadrant pain. She has had multiple admissions for acute pancreatitis due to alcohol. She also has complaints of being constipated. This is my first encounter with this patient. Chart reviewed. *abdominal pain/ chronic bouts of biliary colic hx of biliary dyskinesia s/p cholecystectomy/POD #1 patient has been c/o issues with eating and feeling bloated and poorly after meals advance diet * Acute pancreatitis/ this is recurrent CT scan of the abdomen and pelvis shows constipation will continue supportive treatment lipase stable * alcoholism she knows this is a problems boyfriend drinks beers but not around her no s/sx of withdrawal throughout her stay reviewed with pt * elevated lactic acid level resolved with hydration * hepatitis-C has elevated LFTs should get follow-up with Gastroenterology will need treatment with Mary * nicotine dependence nicotine patch * DVT prophylaxis low molecular weight heparin *Plan: hopefully, can dc home this weekend Advance diet PT/OT eval Subjective: Hungry. Asking for regular food. No specific pain. Pain with coughing. Objective: Vital Signs Temp Pulse Resp BP Pulse Ox 37.0 C 70 18 104/77 94 10/18/16 09:24 10/18/16 09:24 10/18/16 09:24 10/18/16 09:24 10/18/16 09:24 Laboratory Results 10/18/16 04:29 10/18/16 04:29 10/17/16 10/18/16 10/19/16 05:59 05:59 05:59 Intake Total 800 2025 Output Total 2525 Balance 800 -500 PT 13.8 SEC (12.0-15.0) 10/13/16 15:30 INR 1.07 (0.83-1.16) 10/13/16 15:30 - Physical Exam Constitutional: appears nourished, not in pain, chronically ill appearing Eyes: PERRL, anicteric sclera, EOMI Ears, Nose, Mouth, Throat: moist mucous membranes, hearing normal, ears appear normal Cardiovascular: No JVD, No tachycardia, No edema Respiratory: no respiratory distress, no rales or rhonchi, reduced air movement Gastrointestinal: tenderness, No ascites, No guarding Skin: warm, normal color, No erythema Musculoskeletal: normal joint ROM, no joint effusions, generalized weakness Neurologic: AAOx3 Psychiatric: interacting appropriately, not anxious, not encephalopathic ICD10 Worksheet Patient Problems: Problems Problem Status Onset Pancreatitis, alcoholic Acute Abdominal pain Acute Alcohol intoxication Acute Pancreatitis Acute Epigastric pain Acute Lactic acidosis Acute Transaminitis Acute
--- NOTE | 2016-10-18 15:32 | SOAPPROG ---
SOAP Progress Note Assessment/Plan: Assessment/Plan - 51yo F POD#1 s/p lap estephania - Doing well. Pain appears well controlled. Has been OOB ambulating without issue. Had some food this AM which was well tolerated without abd pain or nausea. Abdomen is soft and reassuring. Her incisions are c/d/i. We discussed that showering is ok, no tub bathing or soaking for 3 weeks. No lifting over 30 pounds for 3 weeks as well. - Patient stated she will likely be discharging tomorrow, will plan to round and discuss post-op precautions with patient before d/c as well. 10/18/16 15:30 Subjective: Feels well, had some food which she tolerated Objective: Vital Signs Temp Pulse Resp BP Pulse Ox 37.0 C 70 18 104/77 94 10/18/16 09:24 10/18/16 09:24 10/18/16 09:24 10/18/16 09:24 10/18/16 09:24 Laboratory Results 10/18/16 04:29 10/18/16 04:29 10/17/16 10/18/16 10/19/16 05:59 05:59 05:59 Intake Total 800 2025 Output Total 2525 Balance 800 -500 PT 13.8 SEC (12.0-15.0) 10/13/16 15:30 INR 1.07 (0.83-1.16) 10/13/16 15:30 ICD10 Worksheet Patient Problems: Problems Problem Status Onset Epigastric pain Acute Lactic acidosis Acute Transaminitis Acute Abdominal pain Acute Alcohol intoxication Acute Pancreatitis Acute Pancreatitis, alcoholic Acute
[2016-10-19] MEDS: oxyCODONE IR 5 MG TAB PO PRN ×2 (02:55→11:21)
[2016-10-19] MEDS: ENOXAPARIN 40 MG/0.4 ML SYR SC SCH (08:06)
[2016-10-19] MEDS: SENNOSIDES/DOCUSATE SODIUM TAB PO SCH (08:07)
[2016-10-19] MEDS: THIAMINE HCL 100 MG TAB PO SCH (08:07)
[2016-10-19] MEDS: NICOTINE 14 MG/24 HR PATCH TD SCH (08:07)
[2016-10-19 08:50] VITALS: BP 86/58; PULSE 77; RESP 16; TEMP 97.8; O2SAT 93
--- NOTE | 2016-10-19 09:05 | SOAPPROG ---
SOAP Progress Note Assessment/Plan: Assessment/Plan - 51yo F POD#2 s/p lap estephania - Looks great, eating syrian toast and fonseca this AM which she is tolerating like a champ. OK for dc today. F/u in office 10-14 days. discussed lifting, bathing precautions again. 10/18/16 15:30 10/19/16 09:05 Objective: Vital Signs Temp Pulse Resp BP Pulse Ox 36.6 C 77 16 86/58 L 93 10/19/16 08:40 10/19/16 08:40 10/19/16 08:40 10/19/16 08:40 10/19/16 08:40 Laboratory Results 10/18/16 04:29 10/18/16 04:29 10/18/16 10/19/16 10/20/16 05:59 05:59 05:59 Intake Total 2024 350 Output Total 2525 800 Balance -500 -450 PT 13.8 SEC (12.0-15.0) 10/13/16 15:30 INR 1.07 (0.83-1.16) 10/13/16 15:30 ICD10 Worksheet Patient Problems: Problems Problem Status Onset Epigastric pain Acute Lactic acidosis Acute Transaminitis Acute Abdominal pain Acute Alcohol intoxication Acute Pancreatitis Acute Pancreatitis, alcoholic Acute
--- NOTE | 2016-10-19 14:50 | GDS ---
[f rep st] DISCHARGE SUMMARY DISCHARGE DIAGNOSES: 1. Abdominal pain secondary to biliary colic. 2. Acute pancreatitis. 3. History of alcoholism. 4. History of hepatitis C. 5. Nicotine dependency. CONSULTATIONS: General Surgery. STUDIES AND PROCEDURES DONE: 1. HIDA scan. 2. PICC line insertion. 3. Laparoscopic cholecystectomy. PHYSICAL EXAM: GENERAL: The patient is alert. VITAL SIGNS: Afebrile at 36.6, pulse is 77, respir atory rate 16, blood pressure is 117/83. She is saturating 93% on room air. I saw and evaluated th e patient on the day of discharge. HOSPITAL COURSE: 1. The patient is a 51-year-old female who presented to the emergency room with complaints of right upper quadrant abdominal pain. She was evaluated and diagnosed with abdominal pain secondary to bi liary colic. During this hospitalization, she was diagnosed with biliary dyskinesia. Surgical cons ultation was obtained, and the patient had a laparoscopic cholecystectomy. She tolerated this proce dure well. She is eating a regular diet. She has no further complaints of abdominal pain, and will follow up in the outpatient setting. 2. Acute pancreatitis. This is recurrent and multifactorial for the patient. Her pancreatitis has subsided during this hospital stay. 3. History of alcoholism. I have discussed rehabilitation with the patient. She is connected with the [facility], and will continue to receive therapies there. I reviewed this with the director of casework department, who is in agreement with this disposition plan. 4. History of hepatitis C. The patient has been educated that she needs to follow up with [facility]astro[facility]. She does understand the importance of this and is in agreement. 5. Disposition. The patient will be discharged home independently. There are no pending studies. DISCHARGE MEDICATIONS: I have provided her a prescription for trazodone 150 mg #4, as well as oxyco done IR 5 mg #7. I have instructed her to follow up with her primary care physician at [facility] to receive fur ther medications. I have not adjusted any of her other previously prescribed home medications. I spent greater than 35 minutes in the care, coordination, and management of this patient's disposit ion. /[id number]/MODL
== END 2016-10-19 12:42 | disposition home or self-care (01) | DRG 418 ==
LOC: F3E 20:20
PROVIDERS: ADMIT Internal Medicine; ATTEND Internal Medicine
PROC: 02HV33Z Insertion of Infusion Device into Superior Vena Cava, Percutaneous Approach (ICD-10-PCS; 2016-10-16)
PROC: 0FT44ZZ Resection of Gallbladder, Percutaneous Endoscopic Approach (ICD-10-PCS; principal; 2016-10-17 08:45)
PROC: BF141ZZ Fluoroscopy of Gallbladder, Bile Ducts and Pancreatic Ducts using Low Osmolar Contrast (ICD-10-PCS; principal; 2016-10-17 08:45)
DX: K81.1 Chronic cholecystitis (principal); K86.1 Other chronic pancreatitis; F10.20 Alcohol dependence, uncomplicated; B19.20 Unspecified viral hepatitis C without hepatic coma; F43.10 Post-traumatic stress disorder, unspecified; I10 Essential (primary) hypertension; F17.210 Nicotine dependence, cigarettes, uncomplicated
CPT/HCPCS: 96374; 97116-GP; 97161-GP; 97165-GO; A9537; C1751; J0690; J1170; J1650; J2250; J2405; J2704; J3010; Q9967

== ENCOUNTER 2017-03-06 13:25 | Emergency (ER) | payer MEDICAID ==
[2017-03-06] MEDS ORDERED: NS 1,000 ML IV ONE (13:49)
--- NOTE | 2017-03-06 13:49 | EDPHY ---
H & P Time Seen by Provider: 03/06/17 13:27 HPI/ROS: CHIEF COMPLAINT: Mid abdominal pain, history of alcoholism HISTORY OF PRESENT ILLNESS: The patient is brought to the ED by paramedics with complaints of mid abdominal pain. The patient has a history of alcoholic pancreatitis. The patient also has a history of cholelithiasis. The patient was in the hospital last in September of this year and underwent cholecystectomy at that point time. She also is noted to have pancreatitis. The patient reports that she continues to drink alcohol. She states that her abdominal pain is chronic and has been present for years. It is typically exacerbated with alcohol consumption. She denies any hematemesis or melena. REVIEW OF SYSTEMS: A comprehensive 10 point review of systems is otherwise negative aside from elements mentioned in the history of present illness. Source: Patient Exam Limitations: No limitations - Personal History Tetanus Vaccine Date: < 10 YEARS - Medical/Surgical History Hx Asthma: Yes Hx Chronic Respiratory Disease: No Hx Diabetes: No Hx Cardiac Disease: No Hx Renal Disease: No Hx Cirrhosis: No Hx Alcoholism: Yes Hx HIV/AIDS: No Hx Splenectomy or Spleen Trauma: No Other PMH: pancreatitis, PTSD, anemia, HTN, "LEG CRAMPS" ETOH, GERD - Social History Smoking Status: Current every day smoker - Physical Exam Exam: General Appearance: Alert, alcohol on breath Eyes: Pupils equal and round no pallor or injection ENT, Mouth: Mucous membranes moist Respiratory: There are no retractions, lungs are clear to auscultation Cardiovascular: Tachycardic, no rubs murmurs gallops Gastrointestinal: Minimal epigastric tenderness noted, no peritoneal signs Neurological: A&O, normal motor function, normal sensory exam, normal cranial nerves Skin: Warm and dry, no rashes Musculoskeletal: Neck is supple nontender Extremities: symmetrical, full range of motion Constitutional: Initial Vital Signs Temperature (C) 37.2 C 03/06/17 13:35 Heart Rate 127 H 03/06/17 13:35 Respiratory Rate 16 03/06/17 13:35 Blood Pressure 129/94 H 03/06/17 13:35 O2 Sat (%) 92 03/06/17 13:35 O2 Delivery Mode Room Air Allergies/Adverse Reactions: No Known Allergies Allergy (Verified 08/14/16 14:38) Home Medications: Medication Instructions Recorded Acetaminophen [Tylenol 325mg (*)] 650 mg PO Q4 PRN #0 tab 10/19/16 Nicotine [Nicoderm Cq 14 mg (*)] 14 mg TD DAILY #0 patch 10/19/16 Polyethylene Glycol 3350 [Miralax 17 gm PO DAILY PRN #0 pkt 10/19/16 17 gm (*)] Sennosides/Docusate Sodium 1 - 2 tab PO BID #0 tab 10/19/16 [Senokot-S] Thiamine HCl [Vitamin B-1] 100 mg PO DAILY #0 tab 10/19/16 oxyCODONE IR [Oxycodone Ir (*)] 5 - 10 mg PO Q4 PRN #7 tab 10/19/16 traZODone [traZODone 150MG (*)] 150 mg PO HS #4 tab 10/19/16 Medical Decision Making ED Course/Re-evaluation: I reviewed the patient's past medical records including her in-patient hospitalization in September of this year. Patient had an IV established. She received a L of normal saline. She received 4 mg of IV Zofran. The patient has no evidence of acute pancreatitis. She does have slight dehydration. The patient has no evidence of a fever leukocytosis. The patient did receive a GI cocktail for her abdominal discomfort. The [facility] will be [facility]. Differential Diagnosis: Differential diagnosis considered includes pancreatitis, choledocholithiasis, alcoholic gastritis, dehydration, metabolic abnormality - Data Points Laboratory Results: Laboratory Results 03/06/17 14:20 03/06/17 14:20 03/06/17 03/06/17 14:20 14:20 WBC 9.26 10^3/uL 10^3/uL (3.80-9.50) RBC 4.43 10^6/uL 10^6/uL (4.18-5.33) Hgb 12.2 g/dL L g/dL (12.6-16.3) Hct 37.4 % L % (38.0-47.0) MCV 84.4 fL fL (81.5-99.8) MCH 27.5 pg L pg (27.9-34.1) MCHC 32.6 g/dL g/dL (32.4-36.7) RDW 18.4 % H % (11.5-15.2) Plt Count 173 10^3/uL 10^3/uL (150-400) MPV 9.5 fL fL (8.7-11.7) Neut % (Auto) 74.8 % H % (39.3-74.2) Lymph % (Auto) 20.4 % % (15.0-45.0) [place] % (Auto) 3.6 % L % (4.5-13.0) Eos % (Auto) 0.2 % L % (0.6-7.6) Baso % (Auto) 0.4 % % (0.3-1.7) Nucleat RBC Rel Count 0.0 % % (0.0-0.2) Absolute Neuts (auto) 6.92 10^3/uL H 10^3/uL (1.70-6.50) Absolute Lymphs (auto) 1.89 10^3/uL 10^3/uL (1.00-3.00) Absolute Monos (auto) 0.33 10^3/uL 10^3/uL (0.30-0.80) Absolute Eos (auto) 0.02 10^3/uL L 10^3/uL (0.03-0.40) Absolute Basos (auto) 0.04 10^3/uL 10^3/uL (0.02-0.10) Absolute Nucleated RBC 0.00 10^3/uL 10^3/uL (0-0.01) Immature Gran % 0.6 % % (0.0-1.1) Immature Gran # 0.06 10^3/uL 10^3/uL (0.00-0.10) Sodium 143 mEq/L mEq/L (134-144) Potassium 4.3 mEq/L mEq/L (3.5-5.2) Chloride 107 mEq/L mEq/L (97-110) Carbon Dioxide 16 mEq/l L mEq/l (22-31) Anion Gap 20 mEq/L H mEq/L (8-16) BUN 12 mg/dL mg/dL (7-23) Creatinine 0.7 mg/dL mg/dL (0.6-1.0) Estimated GFR > 60 Glucose 89 mg/dL mg/dL (70-100) Calcium 9.2 mg/dL mg/dL (8.5-10.4) Total Bilirubin 0.5 mg/dL mg/dL (0.1-1.4) Conjugated Bilirubin 0.4 mg/dL mg/dL (0.0-0.5) Unconjugated Bilirubin 0.1 mg/dL mg/dL (0.0-1.1) AST 116 IU/L H IU/L (14-46) ALT 145 IU/L H IU/L (9-52) Alkaline Phosphatase 128 IU/L H IU/L (38-126) Total Protein 8.4 g/dL H g/dL (6.3-8.2) Albumin 4.3 g/dL g/dL (3.5-5.0) Lipase 287 IU/L IU/L (23-300) Medications Given: Discontinued Medications Sodium Chloride (Ns) 1,000 mls @ 0 mls/hr IV EDNOW ONE; Wide Open PRN Reason: Protocol Stop: 03/06/17 13:50 Last Admin: 03/06/17 14:34 Dose: 1,000 mls Ondansetron HCl (Zofran) 4 mg IVP EDNOW ONE Stop: 03/06/17 14:25 Last Admin: 03/06/17 14:35 Dose: Not Given Departure - Departure Disposition: Home, Routine, Self-Care Clinical Impression: Alcohol dependence, Alcohol intoxication, Chronic abdominal pain Condition: Fair Instructions: Acute Abdominal Pain (ED) Referrals: [facility] [Outside] - As per Instructions
[2017-03-06] MEDS ORDERED: ONDANSETRON 4 MG/2 ML VIAL IVP ONE (14:24)
[2017-03-06 14:25] LABS: % IMMATURE GRANULYOCYTES 0.6 % (0.0-1.1); ABSOLUTE IMMATURE GRANULOCYTES 0.06 10^3/uL (0.00-0.10); ADD DIFF? NO; ADD MORPH? NO; ADD SCAN? NO; ATYPICAL LYMPHOCYTE FLAG 10 (0-99); FRAGMENT RBC FLAG 0 (0-99); HEMATOCRIT 37.4 % (38.0-47.0); HEMOGLOBIN 12.2 g/dL (12.6-16.3); LEFT SHIFT FLG 0 (0-99); LIPEMIA HEMOLYSIS FLAG 80 (0-99); MEAN CELL HEMOGLOBIN 27.5 pg (27.9-34.1); MEAN CELL HEMOGLOBIN CONCENTR. 32.6 g/dL (32.4-36.7); MEAN CELL VOLUME 84.4 fL (81.5-99.8); MEAN PLATELET VOLUME 9.5 fL (8.7-11.7); PLATELET CLUMPS FLAG 10 (0-99); PLATELET COUNT 173 10^3/uL (150-400); RED BLOOD CELL COUNT 4.43 10^6/uL (4.18-5.33); RED CELL DISTRIBUTION WIDTH 18.4 % (11.5-15.2)
[2017-03-06 14:39] LABS: ALANINE AMINOTRANSFERASE 145 IU/L (9-52); ALBUMIN 4.3 g/dL (3.5-5.0); ALKALINE PHOSPHATASE 128 IU/L (38-126); ANION GAP 20 mEq/L (8-16); ASPARTATE AMINOTRANSFERASE 116 IU/L (14-46); BILIRUBIN,TOTAL 0.5 mg/dL (0.1-1.4); BILIRUBIN-CONJUGATED 0.4 mg/dL (0.0-0.5); BILIRUBIN-UNCONJUGATED 0.1 mg/dL (0.0-1.1); CALCIUM 9.2 mg/dL (8.5-10.4); CARBON DIOXIDE 16 mEq/l (22-31); CHLORIDE 107 mEq/L (97-110); CREATININE 0.7 mg/dL (0.6-1.0); GLOMERULAR FILTRATION RATE > 60; GLUCOSE 89 mg/dL (70-100); POTASSIUM 4.3 mEq/L (3.5-5.2); SODIUM 143 mEq/L (134-144); TOTAL PROTEIN 8.4 g/dL (6.3-8.2)
[2017-03-06 15:13] VITALS: BP 122/64; PULSE 92; RESP 18; TEMP 98.6; O2SAT 96
[2017-03-06] MEDS ORDERED: CHLORDIAZEPOXIDE 25MG PREPK#6 BTL TAKEHOME ONE (15:20)
== END 2017-03-06 15:35 | disposition home or self-care (01) ==
LOC: EDUNIT#
DX: R10.13 Epigastric pain (principal); G89.29 Other chronic pain; F10.229 Alcohol dependence with intoxication, unspecified; J45.909 Unspecified asthma, uncomplicated; I10 Essential (primary) hypertension; F17.200 Nicotine dependence, unspecified, uncomplicated; E86.9 Volume depletion, unspecified
CPT/HCPCS: J2405

== ENCOUNTER 2018-11-19 14:40 | Emergency (ER) | payer MEDICAID ==
[2018-11-19] MEDS ORDERED: MAG HYDROX/AL HYDROX/SIMETH 30 ML UDCUP PO ONE (15:39)
[2018-11-19] MEDS ORDERED: LIDOCAINE 2% VISCOUS 15 ML UDCUP PO ONE (15:39)
[2018-11-19] MEDS ORDERED: HYOSCYAMINE SULFATE 0.125 MG TAB PO ONE (15:39)
[2018-11-19 15:40] LABS: PLATELET COUNT 168 10^3/uL (150-400)
[2018-11-19] MEDS ORDERED: NS 1,000 ML IV ONE (15:42)
[2018-11-19] MEDS ORDERED: ONDANSETRON 4 MG/2 ML VIAL IVP ONE (15:42)
--- NOTE | 2018-11-19 15:42 | EDPHY ---
H & P Stated Complaint: abdominal pain, hx of pancreatitis; drank 2 pints of deena toussaint last pm Time Seen by Provider: 11/19/18 14:54 HPI/ROS: CHIEF COMPLAINT: Abdominal pain HISTORY OF PRESENT ILLNESS: 53-year-old female with alcoholism and pancreatitis presents with abdominal pain. She has been drinking heavily recently, including this morning. Onset of abdominal pain yesterday. The pain is located in epigastrium and it is constant and moderate. Associated with 2 episodes of vomiting. Similar to prior episode of pancreatitis. No fever. REVIEW OF SYSTEMS: complete 10 point ROS reviewed and is negative except for the noted elements in the HPI - Personal History LMP (Females 10-55): Unknown Current Tetanus/Diphtheria Vaccine: Yes Current Tetanus Diphtheria and Acellular Pertussis (TDAP): Yes Tetanus Vaccine Date: < 10 YEARS - Medical/Surgical History Hx Asthma: Yes Hx Chronic Respiratory Disease: No Hx Diabetes: No Hx Cardiac Disease: No Hx Renal Disease: No Hx Cirrhosis: No Hx Alcoholism: Yes Hx HIV/AIDS: No Hx Splenectomy or Spleen Trauma: No Other PMH: pancreatitis, PTSD, anemia, HTN, "LEG CRAMPS" ETOH, GERD - Social History Smoking Status: Current every day smoker Alcohol Use: Heavy Drug Use: None - Physical Exam Exam: General Appearance: Alert, pleasant, slurred speech Eyes: Pupils equal and round, no conjunctival pallor or injection, no nystagmus ENT, Mouth: Mucous membranes moist Neck: Normal inspection Respiratory: Lungs are clear to auscultation Cardiovascular: Regular rate and rhythm Gastrointestinal: Abdomen is soft, mild epigastric tenderness Neurological: A&O, nonfocal exam Skin: Warm and dry, no rash Extremities: Nontender, no pedal edema Psychiatric: Mood and affect normal Constitutional: Initial Vital Signs Temperature (C) 36.6 C 11/19/18 14:47 Heart Rate 119 H 11/19/18 14:47 Respiratory Rate 16 11/19/18 14:47 Blood Pressure 132/90 H 11/19/18 14:47 O2 Sat (%) 95 11/19/18 14:47 O2 Delivery Mode Room Air O2 (L/minute) 95 Allergies/Adverse Reactions: No Known Allergies Allergy (Verified 08/14/16 14:38) Home Medications: Medication Instructions Recorded Acetaminophen [Tylenol 325mg (*)] 650 mg PO Q4 PRN #0 tab 10/19/16 Nicotine [Nicoderm Cq 14 mg (*)] 14 mg TD DAILY #0 patch 10/19/16 Polyethylene Glycol 3350 [Miralax 17 gm PO DAILY PRN #0 pkt 10/19/16 17 gm (*)] Sennosides/Docusate Sodium 1 - 2 tab PO BID #0 tab 10/19/16 [Senokot-S] Thiamine HCl [Vitamin B-1] 100 mg PO DAILY #0 tab 10/19/16 oxyCODONE IR [Oxycodone Ir (*)] 5 - 10 mg PO Q4 PRN #7 tab 10/19/16 traZODone [traZODone 150MG (*)] 150 mg PO HS #4 tab 10/19/16 Medical Decision Making ED Course/Re-evaluation: Assess: Epigastric pain and alcohol intoxication. Symptoms are typical of acute pancreatitis, possibly assoc with GERD. Feels better after GI cocktail, but continues to have abdominal pain. Lipase is elevated, consistent with acute pancreatitis. Results discussed with the patient, she declines admission. She feels much better after GI cocktail and wishes to go home. She will follow up with [facility]. Warning signs discussed and the patient was strongly encouraged to return for worsening symptoms. Abdominal exam remains unchanged on discharge. Differential Diagnosis: Differential diagnosis includes though it is not limited to appendicitis, cholecystitis, diverticulitis, pyelonephritis, bowel perforation, small bowel obstruction. - Data Points Laboratory Results: Laboratory Results 11/19/18 15:30 11/19/18 15:30 11/19/18 11/19/18 11/19/18 15:30 15:30 15:30 WBC RBC Hgb Hct MCV MCH MCHC RDW Plt Count MPV Neut % (Auto) Lymph % (Auto) [place] % (Auto) Eos % (Auto) Baso % (Auto) Nucleat RBC Rel Count Absolute Neuts (auto) Absolute Lymphs (auto) Absolute Monos (auto) Absolute Eos (auto) Absolute Basos (auto) Absolute Nucleated RBC Immature Gran % Immature Gran # Sodium 144 mEq/L mEq/L (135-145) Potassium 4.1 mEq/L mEq/L (3.5-5.2) Chloride 111 mEq/L H mEq/L (97-110) Carbon Dioxide 17 mEq/l L mEq/l (22-31) Anion Gap 16 mEq/L H mEq/L (6-14) BUN 15 mg/dL mg/dL (7-23) Creatinine 0.6 mg/dL mg/dL (0.6-1.0) Estimated GFR > 60 Glucose 104 mg/dL H mg/dL (70-100) Calcium 8.7 mg/dL mg/dL (8.5-10.4) Total Bilirubin 0.3 mg/dL mg/dL (0.1-1.4) Conjugated Bilirubin 0.2 mg/dL mg/dL (0.0-0.5) Unconjugated Bilirubin 0.1 mg/dL mg/dL (0.0-1.1) AST 93 IU/L H IU/L (14-46) ALT 92 IU/L H IU/L (9-52) Alkaline Phosphatase 169 IU/L H IU/L (38-126) Total Protein 8.3 g/dL H g/dL (6.3-8.2) Albumin 4.4 g/dL g/dL (3.5-5.0) Lipase 693 IU/L H IU/L (23-300) Beta HCG, Qual NEGATIVE Ethyl Alcohol 282 mg/dL H mg/dL (0-10) 11/19/18 15:30 WBC 6.36 10^3/uL 10^3/uL (3.80-9.50) RBC 4.80 10^6/uL 10^6/uL (4.18-5.33) Hgb 14.0 g/dL g/dL (12.6-16.3) Hct 43.0 % % (38.0-47.0) MCV 89.6 fL fL (81.5-99.8) MCH 29.2 pg pg (27.9-34.1) MCHC 32.6 g/dL g/dL (32.4-36.7) RDW 16.6 % H % (11.5-15.2) Plt Count 168 10^3/uL 10^3/uL (150-400) MPV 9.6 fL fL (8.7-11.7) Neut % (Auto) 50.0 % % (39.3-74.2) Lymph % (Auto) 42.9 % % (15.0-45.0) [place] % (Auto) 5.8 % % (4.5-13.0) Eos % (Auto) 0.5 % L % (0.6-7.6) Baso % (Auto) 0.3 % % (0.3-1.7) Nucleat RBC Rel Count 0.0 % % (0.0-0.2) Absolute Neuts (auto) 3.18 10^3/uL 10^3/uL (1.70-6.50) Absolute Lymphs (auto) 2.73 10^3/uL 10^3/uL (1.00-3.00) Absolute Monos (auto) 0.37 10^3/uL 10^3/uL (0.30-0.80) Absolute Eos (auto) 0.03 10^3/uL 10^3/uL (0.03-0.40) Absolute Basos (auto) 0.02 10^3/uL 10^3/uL (0.02-0.10) Absolute Nucleated RBC 0.00 10^3/uL 10^3/uL (0-0.01) Immature Gran % 0.5 % % (0.0-1.1) Immature Gran # 0.03 10^3/uL 10^3/uL (0.00-0.10) Sodium Potassium Chloride Carbon Dioxide Anion Gap BUN Creatinine Estimated GFR Glucose Calcium Total Bilirubin Conjugated Bilirubin Unconjugated Bilirubin AST ALT Alkaline Phosphatase Total Protein Albumin Lipase Beta HCG, Qual Ethyl Alcohol Medications Given: Discontinued Medications Al Hydroxide/Mg Hydroxide (Maalox Susp) 30 ml PO ONCE ONE Stop: 11/19/18 15:40 Last Admin: 11/19/18 15:59 Dose: 30 ml Hyoscyamine Sulfate (Levsin, Hyomax-Sl) 0.25 mg PO ONCE ONE Stop: 11/19/18 15:40 Last Admin: 11/19/18 16:00 Dose: 0.25 mg Lidocaine (Lidocaine 2% Viscous) 15 ml PO ONCE ONE Stop: 11/19/18 15:40 Last Admin: 11/19/18 15:59 Dose: 15 ml Ondansetron HCl (Zofran) 4 mg IVP EDNOW ONE Stop: 11/19/18 15:43 Last Admin: 11/19/18 16:00 Dose: 4 mg Departure - Departure Disposition: Home, Routine, Self-Care Clinical Impression: Pancreatitis, alcoholic Qualifiers: Pancreatitis type: alcohol induced Acute pancreatitis complication: uninfected necrosis Qualified Code(s): K85.21 - Alcohol induced acute pancreatitis with uninfected necrosis Alcohol intoxication Qualifiers: Complication of substance-induced condition: uncomplicated Qualified Code(s): F10.920 - Alcohol use, unspecified with intoxication, uncomplicated Condition: Good Instructions: Pancreatitis (ED), Alcohol Intoxication (ED) Additional Instructions: Clear liquids for 24 hours. Return for worsening symptoms or any concerns. Follow-up with [facility]. Referrals: Snehal Garnett DO [Doctor of Osteopathy] - As per Instructions
[2018-11-19 16:38] VITALS: BP 142/79
== END 2018-11-19 16:55 | disposition home or self-care (01) ==
LOC: EDUNIT#
DX: K85.21 Alcohol induced acute pancreatitis with uninfected necrosis (principal); F10.920 Alcohol use, unspecified with intoxication, uncomplicated; E86.9 Volume depletion, unspecified
CPT/HCPCS: 96374; G0480; J2405